=== PATIENT | female | born 1960 | race Caucasian/White ===

== ENCOUNTER 2023-11-16 11:50 | Emergency (ER) | payer OTHER, SELFPAY ==
[2023-11-16 12:00] VITALS: BP 134/87
--- NOTE | 2023-11-16 13:30 | ED.MUSCINJ ---
HPI-Injury
General
Chief Complaint: Musculo-Skeletal Complaint
Source: patient
Exam Limitations: none
Time Seen by Provider: 11/16/23 13:16
Nursing documentation reviewed up to this point in time: agreed with
Travel History
Have you had any contact with someone who has COVID-19?: No
Do you have any symptoms of coronavirus? Fever > 100 degrees, chills, cough, shortness of breath, sore throat, loss of taste or smell, muscle aches, or headache?: No
History of Present Illness-Injury
Is this injury a work related problem?: No
Is pt an associate of [facility]?: No
Initial Injury comments:
Patient to ED wtih complaint of right posterior heel pain. Symptoms started tthis weekend. Denies any history of trauma. No prior history of same. Brought self to ED for eval.
Past History
Past History
ED Past Medical History: None
ED Past Surgical History: None
Social History
Tobacco: Non-smoker
Alcohol: None
Drug: None
Personal:
Living: with family
Employment: Employed
Review of Systems
Review of Systems
Allergies reviewed?: Yes
All Other Systems: ROS reviewed and negative except as documented in HPI and ROS
Constitutional: Reports no symptoms
Musculoskeletal: Reports joint pain (Pain and swelling to right posterior heel)
Skin: Reports no symptoms
Neurological: Reports no symptoms
Psychiatric: Reports no symptoms
Musculoskeletal Injury Exam
Musculoskeletal Injury Exam
Right posterior heel:
Pain with Movement?: Moderate
Tender to palpation?: Moderate
Soft tissue swelling?: Moderate
External deformity and angulation?: None
Joint effusion?: None
Contusion?: None
Hematoma-local bleeding into tissue?: None
Strain- Sprain- Tear (Connective tissue injury)?: None
Crepitus with movement?: No
Joint instability?: No
Malalignment/deformity?: No
Range of motion: Limited
Distal skin color and temperature: normal-warm & good color
Capillary Refill: normal
Normal distal neurovascular exam?: Yes
Peripheral Pulses: posterior tibial (right): 3+ and dorsalis pedis (right): 3+
Phy Exam
General Physical Exam
General Presentation: well appearing and mild distress
General age: appears stated age
General Skin: warm and dry
General Habitus: normal
General Mental: alert
General Hydration: appears well hydrated
Musculoskeletal Exam
Musculoskeletal Exam: neuro vasc intact and other (Right achilles intact although painful to palpate at calcaneal insertion. Swelling over calcaneal bursal. No calf pain, redness or swelling. No knee symptoms. + palpable DP/PT pulses.)
Skin Exam
Skin Exam: normal color, warm/dry and no rash
Psychiatric Exam
Psychiatric Exam: normal mood/affect
Injury Course
Orders/Labs/Results
Orders:
Orders
11/16/23 12:00
CR Ankle - Right Min 3 Views * Urgent
Comment:
Reason For Exam: pain and swelling
Foot, Right 2 View [CR Foot - Right 2 Views] Urgent
Comment:
Reason For Exam: pain and swelling
11/16/23 13:27
Crutches-Treatment ONCE
*Radiology
Radiology exam reviewed: radiology read reviewed
*Critical Care Note
Total Time (30-74mins, 75-104mins- exclusive of procedures): Not Applicable
ED Attending Note
-
Portions of this chart may have been created with voice recognition software.� Occasional wrong word or��sound alike� substitutions may have occurred due to the inherent limitations of voice recognition software.
Discharge Plan
Departure
Patient Disposition: Home (Routine Discharge)
Date of Disposition: 11/16/23
Time of Disposition: 13:28
Patient with high blood pressure during this ER visit?: No
Condition: Good
Covid-19: Not Applicable
Discharge Problem:
Calcaneal bursitis
Instructions: How to Use Crutches, Ibuprofen, Using Cold for Pain, Bursitis ED
Prescriptions:
No Action
furosemide [Lasix] 40 MG tablet
40 mg PO PRN PRN (Reason: edema)
polyethylene glycol 3350 17 GRAMS powder in packet
17 grams PO BID
hydrochlorothiazide 12.5 MG tablet
12.5 mg PO DAILY Qty: 30 0RF
Referrals:
Francisco Stern DPM [Specified Professional Personl] - Call in 1-3 days for appt
UNKNOWN - PT DOES,NOT KNOW [Family Provider] -
Stand Alone Forms: Return to Work
Interventions
Interventions:
*Risk Screen - Suicide Last Done: 11/16/23 12:00
*General Assessment Last Done: 11/16/23 12:00
*Neglect/Abuse Screening Last Done: 11/16/23 12:00
*ED COVID-19 Vaccine History Last Done: 11/16/23 12:00
Discharge Date and Time
Print Language: TURKISH
== END 2023-11-16 13:55 | disposition home or self-care (01) ==
LOC: EMR 11:50
PROVIDERS: EMERGENCY PHYSICIAN Emergency Medicine
DX: M77.51 Other enthesopathy of right foot and ankle (principal)
CPT/HCPCS: 99283; 73610; 73620

== ENCOUNTER → 2024-02-17 13:05 | Outpatient (REF) | payer OTHER, SELFPAY | LOC: RAD 13:05 | PROVIDERS: ATTENDING PHYSICIAN Physician Assistant | DX: M25.562 Pain in left knee (principal) | CPT/HCPCS: 73564 ==

== ENCOUNTER 2024-02-27 12:37 | Emergency (ER) | payer OTHER, SELFPAY ==
[2024-02-27 12:42] VITALS: BP 150/101
--- NOTE | 2024-02-27 14:50 | ED.GENMED ---
History of Present Illness
General
Chief Complaint: Musculo-Skeletal Complaint
Time Seen by Provider: 02/27/24 14:31
History of Present Illness
History of Present Illness:
64-year-old female presents emergency department for evaluation of worsening left knee pain for the past 3 to 4 weeks. Denies any acute falls or trauma. Notes increasing swelling for the past week. Unable to flex it beyond approximately 15 to 30
degrees secondary to pain. She been using crutches and not able to bear weight. Denies any fevers or chills.
Past History
Past History
ED Past Medical History: None
ED Past Surgical History: None
Social History
Tobacco: Non-smoker
Alcohol: None
Drug: None
Personal:
Living: with family
Employment: Employed
Review of Systems
Review of Systems
Allergies reviewed?: Yes
All Other Systems: ROS reviewed and negative except as documented in HPI and ROS
Phy Exam
Physical Exam
Physical Exam:
GEN: Well appearing, NAD, WDWN
HEENT: Oral mucosa moist, no scleral icterus
Cardiac: Regular rate
Lung: No respiratory distress, no tachypnea
MSK: Moderate left knee effusion, unable to flex beyond 30 degrees, extension is within normal limits. Tender to palpation diffuse
Skin: Good color, no pallor or jaundice, no rashes
Neuro: AO x3, moves all extremities freely
Psych: Calm, cooperative
Course
Orders/Labs/Results
Orders:
Orders
02/27/24 12:45
CR Knee - Left 4 Or More View* Urgent
Comment:
Reason For Exam: pain
Vital Signs
Initial and Last Documented VS:
Initial Vital Signs
Temp Pulse Resp BP Pulse Ox
98.3 F 107 20 150/101 99
02/27/24 12:42 02/27/24 12:42 02/27/24 12:42 02/27/24 12:42 02/27/24 12:42
Last Documented Vital Signs
Temp Pulse Resp BP Pulse Ox
98.3 F 107 20 150/101 99
02/27/24 12:42 02/27/24 12:42 02/27/24 12:42 02/27/24 12:42 02/27/24 12:42
MDM/Problems Addressed
MDM/Problems Addressed:
I did offer knee arthrocentesis for both therapeutic and diagnostic purposes however she declines. This is not unreasonable as I have a low clinical suspicion for septic arthritis. X-ray suspicious for potential pseudogout arthropathy, as she has
been taking anti-inflammatories for the better part of the past 2 weeks will recommend course of steroids and outpatient orthopedic follow-up. Knee immobilizer provided
*Critical Care Note
Total Time (30-74mins, 75-104mins- exclusive of procedures): Not Applicable
ED Attending Note
-
Portions of this chart may have been created with voice recognition software.� Occasional wrong word or��sound alike� substitutions may have occurred due to the inherent limitations of voice recognition software.
Discharge Plan
Departure
Patient Disposition: Home (Routine Discharge)
Date of Disposition: 02/27/24
Time of Disposition: 14:50
Patient with high blood pressure during this ER visit?: No
Discharge Problem:
Effusion of left knee
Instructions: Knee Sprain (DC)
Prescriptions:
New
methylprednisolone [Medrol (Tim)] 4 mg tablets,dose pack
See Rx Instructions .ROUTE .COMPLEX Qty: 21 0RF
Rx Instructions:
orally per package directions
meloxicam 15 mg tablet
15 mg PO DAILY Qty: 20 0RF
No Action
furosemide [Lasix] 40 MG tablet
40 mg PO PRN PRN (Reason: edema)
polyethylene glycol 3350 17 GRAMS powder in packet
17 grams PO BID
hydrochlorothiazide 12.5 MG tablet
12.5 mg PO DAILY Qty: 30 0RF
Referrals:
Marcelina Ritter CRNP [Primary Care Provider] -
Scott Helms MD [Active] -
Stand Alone Forms: Return to Work
Activity Restrictions/Additional Instructions:
Start the meloxicam after the steroid pack is complete
Follow up with Orthopedics
Interventions
Interventions:
*Risk Screen - Suicide Last Done: 02/27/24 12:42
*General Assessment Last Done: 02/27/24 12:42
*Neglect/Abuse Screening Last Done: 02/27/24 12:42
*Nursing Disposition Last Done: 02/27/24 15:18
ED-Musculoskeletal Assessment Last Done: 02/27/24 15:16
Discharge Date and Time
Discharge Date/Time: 02/27/24 15:18
Print Language: TAJIK
== END 2024-02-27 15:18 | disposition home or self-care (01) ==
LOC: EMR 12:37
PROVIDERS: EMERGENCY PHYSICIAN Student in an Organized Health Care Education/Training Program; PRIMARYCARE PHYSICIAN Nurse Practitioner Family
DX: M25.462 Effusion, left knee (principal)
CPT/HCPCS: 99283; 73564

== ENCOUNTER → 2024-03-03 20:25 | Outpatient (REF) | payer OTHER, SELFPAY | LOC: MRI 3T 20:25 | PROVIDERS: ATTENDING PHYSICIAN Physician Assistant | DX: M25.562 Pain in left knee (principal); M12.562 Traumatic arthropathy, left knee; R26.81 Unsteadiness on feet | CPT/HCPCS: 73721 ==

== ENCOUNTER → 2024-06-23 08:56 | Outpatient (REF) | payer OTHER, SELFPAY | LOC: WDC 08:56 | PROVIDERS: ATTENDING PHYSICIAN Family Medicine | DX: N64.4 Mastodynia (principal) | CPT/HCPCS: 76642; 77062; 77066 ==

== ENCOUNTER → 2024-12-23 08:16 | Outpatient (REF) | payer OTHER, SELFPAY | LOC: RAD 08:16 | PROVIDERS: ATTENDING PHYSICIAN Family Medicine | DX: R10.12 Left upper quadrant pain (principal); K21.9 Gastro-esophageal reflux disease without esophagitis | CPT/HCPCS: 74177; Q9967 ==

== ENCOUNTER 2025-02-18 09:52 | Emergency (ER) | payer OTHER, SELFPAY ==
[2025-02-18 10:01] VITALS: BP 140/88
[2025-02-18 12:15] VITALS: BMI 28.3
[2025-02-18 12:17] VITALS: BP 143/88
--- NOTE | 2025-02-18 12:36 | ED.GENMED ---
History of Present Illness
General
Chief Complaint: Musculo-Skeletal Complaint
Source: patient
Exam Limitations: none
Time Seen by Provider: 02/18/25 11:43
Nursing documentation reviewed up to this point in time: agreed with
History of Present Illness
History of Present Illness:
Patient is a 65-year-old female who presents the emergency department for evaluation of left-sided chest pain. Patient states symptom started yesterday evening and she describes a sharp pain in her left lower chest wall, which is worse with deep
inspiration. She feels that she is having trouble getting a deep breath due to the pain. She denies any recent falls or trauma.
However � she does report recently getting over a viral illness and has been coughing frequently. She was seen by her primary care provider earlier this week, prior to onset of this pain, where she apparently had clear lungs.
Patient denies any associated fever, productive cough, exertional chest pain. No lightheadedness, dizziness, pain or swelling in lower extremities.
No recent surgery or travel. No exogenous hormones.
No history of similar symptoms.
Past History
Past History
ED Past Medical History: None
ED Past Surgical History: None
Social History
Tobacco: Non-smoker
Alcohol: None
Drug: None
Personal:
Living: with family
Employment: Employed
Review of Systems
Review of Systems
Allergies reviewed?: Yes
All Other Systems: ROS reviewed and negative except as documented in HPI and ROS
Phy Exam
Physical Exam
Physical Exam:
Vitals: Hypertensive, otherwise vital signs stable. Afebrile
General: Patient is well appearing, no acute distress. Nontoxic appearing.
Skin: Warm and dry, no rashes or lesions
Head: Normocephalic, atraumatic
Eyes: Sclera nonicteric.
Throat: Protecting airway
Neck: Normal ROM, no cervical spine tenderness, no meningismus
Cardiac: Regular rate and rhythm, no murmurs. Reproducible tenderness of left lower chest wall. No rash, erythema, or deformity.
Pulm: Normal respiratory effort, no wheezes, rales, rhonchi heard on exam.
Abdomen: No abdominal tenderness.
Extremities: No evidence of cyanosis or edema. 2+ DP pulses bilaterally.
Neuro: AAOx3. Grossly intact
Psychiatric: Normal affect.
Course
Orders/Labs/Results
Orders:
Orders
02/18/25 10:04
Electrocardiogram (*1) Urgent
Reason for Study: Chest Pain
EKG- Treatment ONCE
Ribs, Left 3 View W/PA Chest CR [CR Ribs-left 3 Vw W/pa Chest] Urgent
Comment:
Reason For Exam: pain
02/18/25 12:15
CT Chest PE Study Urgent
Comment:
Reason For Exam: Pleuritic chest pain
02/18/25 12:23
COVID-19 Antigen Urgent
Source: Nasal Swab
Complete Blood Count/With Diff Urgent
Comprehensive Metabolic Panel Urgent
02/18/25 12:24
Troponin I Urgent
Abnormal Lab Results
02/18/25
12:23
Neutrophils % 77.7 H %
(42.2-75.2)
Lymphocytes % 14.5 L %
(20.5-51.1)
02/18/25 12:23
02/18/25 12:23
Vital Signs
Initial and Last Documented VS:
Initial Vital Signs
Temp Pulse Resp BP Pulse Ox
98.5 F 70 20 140/88 94
02/18/25 10:01 02/18/25 10:01 02/18/25 10:01 02/18/25 10:01 02/18/25 10:01
Last Documented Vital Signs
Temp Pulse Resp BP Pulse Ox
98.5 F 75 14 130/83 94
02/18/25 10:01 02/18/25 15:00 02/18/25 15:00 02/18/25 15:00 02/18/25 12:37
MDM/Problems Addressed
Differential Diagnosis Includes:
Not limited to: Pleurisy, costochondritis, rib fracture/contusion, bronchitis, pneumonia, pneumothorax, pulmonary embolism, zoster, etc.
MDM/Problems Addressed:
65-year-old female presenting with acute onset left sided pleuritic chest pain in setting of recent viral illness. No fevers or productive cough. No exertional chest pain. Vitals and exam as above. Patient well appearing, in no apparent distress.
Heart regular rate and rhythm. Lungs clear bilaterally. There is reproducible tenderness of left lower chest wall without any overlying rash or erythema. No clinical evidence of DVT on exam. A rib series with chest x-ray was obtained in triage
without acute abnormalities or evidence of pneumonia or rib fracture.
Given recent viral illness � likely costochondritis or pleurisy. However � patient does report history of superficial blood clots, and recent ankle injury � will obtain CTA chest to rule out pulmonary embolism. Will check labs, troponin, EKG.
Patient declines analgesia.
Update: labs reviewed without any clinically significant abnormalities. Troponin undetectable. EKG shows normal sinus rhythm without acute ischemic changes. CT scan shows no evidence of pulmonary embolism or acute process in the chest.
Patient has remained well and comfortable appearing with stable vital signs. At this point � suspect costochondritis or possible pleurisy. Feel stable for discharge home with anti-inflammatory medications, close return precautions. She will follow
up with primary care. Patient comfortable with plan.
Chronic conditions affecting care:
N/A
Acute Exacerbation and/or Progression of Chronic Illness:
N/A
*Radiology
Radiology exam reviewed: radiology read reviewed
*Pulse Oximetry
SaO2: 94
Oxygen Mode of Delivery: Room air
Patient hypoxic: no
*EKG
Interpreted by ED Provider?: Yes
EKG Intrepretation Date: 02/18/25
Interpretation: normal
Comparison EKG: no changes
Heart Rate: 71
Rate: normal
Rhythm: sinus
[place]: normal axis
Interval: normal QT interval
QRS Pattern: normal QRS
Ischemia: no ischemia
*Reinsurance Clerk Interpretation
Rate: normal
Interpretation: normal
Heart Rate: 72
Rhythm: sinus
*Critical Care Note
Total Time (30-74mins, 75-104mins- exclusive of procedures): Not Applicable
ED Attending Note
-
Portions of this chart may have been created with voice recognition software.� Occasional wrong word or��sound alike� substitutions may have occurred due to the inherent limitations of voice recognition software.
Discharge Plan
Departure
Patient Disposition: Home (Routine Discharge)
Date of Disposition: 02/18/25
Time of Disposition: 14:59
Patient with high blood pressure during this ER visit?: Yes
Condition: Good
Discharge Problem:
Costochondritis, acute, Chest pain
Instructions: Costochondritis, BLOOD PRESSURE
Prescriptions:
No Action
furosemide [Lasix] 40 MG tablet
40 mg PO PRN PRN (Reason: edema)
polyethylene glycol 3350 17 GRAMS powder in packet
17 grams PO BID
hydrochlorothiazide 12.5 MG tablet
12.5 mg PO DAILY Qty: 30 0RF
methylprednisolone [Medrol (Tim)] 4 mg tablets,dose pack
See Rx Instructions .ROUTE .COMPLEX Qty: 21 0RF
Rx Instructions:
orally per package directions
meloxicam 15 mg tablet
15 mg PO DAILY Qty: 20 0RF
Referrals:
Wali Andrea MD [Family Provider, Family Practice] - Follow up in 5-7 days
Activity Restrictions/Additional Instructions:
RETURN TO THE EMERGENCY DEPARTMENT ANY FEVER, CHILLS, PRODUCTIVE COUGH, WORSENING PAIN, ANY SHORTNESS OF BREATH/DIFFICULTY BREATHING, WORSENING CURRENT SYMPTOMS, OR ANY OTHER CONCERN
- As discussed�your workup in the emergency department showed no acute abnormalities including lab work, cardiac enzymes, chest CT.
- You may be experiencing muscular pain from frequent coughing or pleurisy.
- Please take anti-inflammatory such as Motrin and/or Tylenol as needed for pain. Is important stay well-hydrated.
- Follow-up with your primary care provider for further evaluation/management to ensure that your symptoms are improving
Monitor your symptoms closely and return to the emergency department with any acute worsening/new symptoms or any other concerns
Interventions
Interventions:
*Risk Screen - Suicide Last Done: 02/18/25 10:01
*General Assessment Last Done: 02/18/25 10:01
*Neglect/Abuse Screening Last Done: 02/18/25 12:16
*ED- Fall Risk Assessment Last Done: 02/18/25 12:16
*ED COVID-19 Vaccine History Last Done: 02/18/25 12:16
*Nursing Disposition Last Done: 02/18/25 15:22
ED-Musculoskeletal Assessment Last Done: 02/18/25 13:23
Discharge Date and Time
Discharge Date/Time: 02/18/25 15:23
Print Language: VIETNAMESE
[2025-02-18 12:37] LABS: Hematocrit 38.5 % (37.0-47.0); Hemoglobin 12.8 g/dL (12.0-16.0); Mean Corp Hgb Conc. 33.2 g/dL (33.0-37.0); Mean Corpuscular Volume 89.3 fL (81.0-99.0); Nucleated Red Blood Cells % 0 %; Platelet Count 209 10^3/uL (130-400); Red Cell Dist. Width 12.4 % (11.5-14.5)
[2025-02-18 12:51] LABS: ALT (SGPT) 16 U/L (0-35); AST (SGOT) 18 U/L (14-36); Albumin 4.4 g/dl (3.5-5.0); Alkaline Phosphatase 63 U/L (38-126); Blood Urea Nitrogen 17 mg/dl (7-17); Calcium 9.6 mg/dl (8.4-10.2); Carbon Dioxide 27 mmol/L (22-30); Chloride 103 mmol/L (98-107); Estimated Creatinine Clearance 80 ml/min; Glucose 92 mg/dl (70-99); Potassium 3.5 mmol/L (3.5-5.1); Sodium 136 mmol/L (135-145); Total Protein 6.6 g/dl (6.3-8.2); eGFR > 60.00
[2025-02-18 12:57] LABS: COVID-19 Antigen Negative (Negative)
[2025-02-18 13:00] VITALS: BP 139/77
[2025-02-18 13:02] LABS: Troponin I < 0.012 ng/ml
[2025-02-18 14:00] VITALS: BP 137/89
[2025-02-18 15:00] VITALS: BP 130/83
== END 2025-02-18 15:23 | disposition home or self-care (01) ==
LOC: EMR 09:52
PROVIDERS: Physician Assistant; EMERGENCY PHYSICIAN Emergency Medicine; FAMILY PHYSICIAN Family Medicine
DX: M94.0 Chondrocostal junction syndrome [Tietze] (principal); R07.89 Other chest pain; R03.0 Elevated blood-pressure reading, without diagnosis of hypertension; Z11.52 Encounter for screening for COVID-19
CPT/HCPCS: 99285; 71101; 71275; 80053; 84484; 85025; 87811; 93005; Q9967

== ENCOUNTER → 2025-05-14 07:40 | Outpatient (REF) | payer OTHER, SELFPAY | LOC: MRI 3T 07:40 | PROVIDERS: ATTENDING PHYSICIAN Family Medicine | DX: R51.9 Headache, unspecified (principal); H53.8 Other visual disturbances; H93.13 Tinnitus, bilateral | CPT/HCPCS: 70553; A9575 ==